=== PATIENT | male | born 1930 | race Caucasian/White ===

== ENCOUNTER 2017-09-08 22:58 | Inpatient (IN) | payer MEDICARE, BC ==
[~2017-09-08] VITALS: Ht 193 cm; Wt 92.4 kg
[~2017-09-08 22:58] MED LIST: COUMADIN2.5 MG PO; PRILOSEC20 MG PO; SLO-NIACIN; TRAVATAN Z2.5 ML EACH EYE; TYLENOL 325 MG325 MG PO; ULTRACET TABLET1 TAB PO; ZOCOR20 MG PO
[2017-09-08 23:46] LABS: BASOPHILS 0.4 % (0-2); EOSINOPHILS 3.9 % (0-7); HEMATOCRIT 42.1 % (42.0-54.0); HEMOGLOBIN 13.5 g/dL (13.5-17.5); IMMATURE GRANULOCYTES 0.1 % (0-5); LYMPHOCYTES 20.9 % (15-50); MCH 30.5 pg (26.0-34.0); MCHC 32.1 g/dL (31.0-37.0); MEAN PLATELET VOLUME 11.4 fL (7.4-10.4); MONOCYTES 12.7 % (2-11); PLATELET COUNT 164 10x3/uL (130-400); RBC 4.43 10x6/uL (4.20-6.10); RDW 14.7 % (11.5-14.5); WBC 7.1 10x3/uL (4.8-10.8)
[2017-09-09] VITALS (7 sets, daily range): BP systolic 103–152; BP diastolic 43–132; Ht 193 cm; Wt 92.4 kg
[2017-09-09 00:02] LABS: ALBUMIN 3.3 g/dL (3.4-5.0); ALKALINE PHOSPHATASE 91 U/L (46-116); ALT (SGPT) 14 U/L (10-68); BILIRUBIN - TOTAL 1.26 mg/dL (0.2-1.3); CALC OSMOLALITY 284 mosm/kg (275-300); CALCIUM 8.8 mg/dL (8.5-10.1); CARBON DIOXIDE 24.6 mmol/L (21.0-32.0); CHLORIDE - SERUM 106 mmol/L (98-107); GLUCOSE 110 mg/dL (74-106); POTASSIUM - SERUM 3.7 mmol/L (3.5-5.1); SODIUM 142 mmol/L (136-145); UREA NITROGEN 14 mg/dL (7-18); eGFR NON AFRICAN AMERICAN 75 mL/min (90-120)
[2017-09-09 00:15] LABS: CREATINE KINASE 104 UL (21-232); MAGNESIUM - SERUM 1.9 mg/dL (1.8-2.4); PRO BNP 3832 pg/mL (0-450); TROPONIN-I 0.027 ng/mL (0.000-0.060)
[2017-09-09 08:44] LABS: INR 2.23 (0.85-1.17); PROTIME 24.8 SECONDS (11.6-15.0)
[2017-09-10 00:04] VITALS: BP 107/51
[2017-09-10 04:24] VITALS: BP 115/42
[2017-09-10 05:24] LABS: BASOPHILS 0.4 % (0-2); EOSINOPHILS 4.6 % (0-7); HEMATOCRIT 38.7 % (42.0-54.0); HEMOGLOBIN 12.6 g/dL (13.5-17.5); IMMATURE GRANULOCYTES 0.2 % (0-5); LYMPHOCYTES 26.4 % (15-50); MCHC 32.6 g/dL (31.0-37.0); MCV 95.3 fL (80.0-100.0); MEAN PLATELET VOLUME 11.1 fL (7.4-10.4); MONOCYTES 15.6 % (2-11); NEUTROPHILS 52.8 % (40-80); PLATELET COUNT 165 10x3/uL (130-400); RBC 4.06 10x6/uL (4.20-6.10); RDW 14.2 % (11.5-14.5)
[2017-09-10 05:36] LABS: INR 2.2 (0.85-1.17); PROTIME 24.5 SECONDS (11.6-15.0)
[2017-09-10 05:52] LABS: ANION GAP 9.8 mmol/L (8-16); CALCIUM 8.6 mg/dL (8.5-10.1); MAGNESIUM - SERUM 1.9 mg/dL (1.8-2.4); POTASSIUM - SERUM 3.6 mmol/L (3.5-5.1)
[2017-09-10 05:57] LABS: CARBON DIOXIDE 31.8 mmol/L (21.0-32.0); CREATININE - SERUM 1.3 mg/dL (0.6-1.3)
[2017-09-10] MEDS ORDERED: LASIX40 MG PO (06:45)
[2017-09-10] MEDS ORDERED: K-TAB10 MEQ PO (06:46)
[2017-09-10] MEDS ORDERED: LEVAQUIN750 MG PO (06:47)
--- NOTE | 2017-09-10 06:51 | HP ---
PATIENT: SOCORRO FLOWER MEDICAL RECORD: [id number] ACCOUNT: [id number] LOCATION:[address] : 32 ADMISSION DATE: 09/09/17 HISTORY AND PHYSICAL EXAMINATION DATE OF ADMISSION: 09/09/2017 CHIEF COMPLAINT: Shortness of breath. HISTORY OF PRESENT ILLNESS: The patient is an 87-year-old gentleman, who states for the last couple of days he presented to the Emergency Room complaining of cough, congestion, and unable to breathe. PAST MEDICAL HISTORY: Significant that he has had a pacemaker placed. He has also had atrial fibrillation, has had a left carotid endarterectomy. The patient has had hypertension as well as hyperlipidemia. He has also had BPH. FAMILY HISTORY: Father had diabetes mellitus, at 64 years of age. Also myocardial infarction. Mother at 97 years of age. SOCIAL HISTORY: The patient was born and raised in [place]. He is educated through the 12th grade and retired from the [employer]. He is the father of 1. He is a . HABITS: He stopped smoking in 2001. Alcohol was 9. MEDICATIONS: Include, omeprazole 20 mg once a day. He is also on warfarin 2.5 daily, ____ 40 mg daily. ALLERGIES: HE IS ALLERGIC TO STATINS. REVIEW OF SYSTEMS: CONSTITUTIONAL: He denies any headaches, seizure or syncope. Denies change in visual or auditory acuity. PULMONARY: He denies any hemoptysis. He has had cough. He has had congestion. He has had shortness of breath. CARDIOVASCULAR: He denies any chest pain, palpitations, PND or orthopnea. GASTROINTESTINAL: No chronic nausea, vomiting, melena or hematochezia. GENITOURINARY: No urinary frequency or dysuria. PHYSICAL EXAMINATION: VITAL SIGNS: In the Emergency Room, the patient's pulse was 82, his respirations 22, his blood pressure is 182/117, his O2 sat was 89% on 2 liters. HEAD, EYES, EARS, NOSE, AND THROAT: Head is normocephalic. No lesions. Ears: TMs clear. Eyes: Pupils equal, round and reactive to light. His extraocular movements are intact. Nasal cavity, oral cavity, oropharynx clear. NECK: Supple. There is no adenopathy. HEART: Has a regular rate without murmurs, gallops or rubs. LUNGS: He had some rales in the left lower lung. ABDOMEN: Soft, bowel sounds positive. EXTREMITIES: The patient does have a trace pretibial edema. LABORATORY DATA: He had a white count 7.1, hemoglobin 13.5, hematocrit 42.1, and his platelets were 164. HISTORY AND PHYSICAL [id number] SOCORRO FLOWER His sodium is 142, potassium 3.7, chloride is 106, CO2 is 24.6, BUN 14, creatinine of 1.0, glucose 110. He had a proBNP of 3832. X-ray revealed cardiomegaly with possible left lower lobe infiltrate. ASSESSMENT: Probable congestive heart failure, history of peripheral vascular disease, pneumonia, history of atrial fibrillation, and hyperlipidemia. PLAN: The patient is admitted. We will add diuresis, placed on Levaquin 750 mg IV q. 24 hours. We will adjust the patient's blood pressure meds. We will also get an echocardiogram. TRANSINT:[id number] Voice Confirmation ID: [id number] DOCUMENT ID: [id number] LEONEL MARTINEZ MD at 0651 CC: [id number] DICTATION DATE: 09/09/17715 PROJECT INSPECTOR: 09/09/17 0912 ADM IN [address] [place] [address]
[2017-09-10 08:16] VITALS: BP 163/87
--- NOTE | 2017-11-05 07:19 | DS ---
PATIENT:SOCORRO FLOWER :34 MEDICAL RECORD: [id number] DISCHARGE SUMMARY ADMISSION DATE: 09/09/17 DISCHARGE DATE: 09/10/17 DATE OF ADMISSION: 09/09/2017 DATE OF DISCHARGE: 09/10/2017 CONDITION ON DISCHARGE: Improved. ADMITTING DIAGNOSES: Congestive heart failure, peripheral vascular disease, pneumonia, history of atrial fibrillation, hyperlipidemia. DISCHARGE DIAGNOSES: Cough, hypertension, congestive heart failure, pneumonia, BPH, history of pacemaker, atrial fibrillation. HOSPITAL COURSE: This patient is an 87-year-old gentleman with a longstanding history of having had hypertension. He presented to the Emergency Room with difficulty and cough and congestion, difficulty breathing. In the Emergency Room, the patient's pulse was 82, his respirations 22, his blood pressure elevated at 182/117, his O2 sat was 89% on 2 liters. His HEENT was unremarkable. His heart had a regular rate. His lungs, he had rales in the left lower lung. White count was 7.1, hemoglobin 13.5, hematocrit was 42.1, his platelets were 164. Sodium 142, potassium was 3.7, chloride 106, CO2 was 24.6, BUN 14, creatinine was 1, glucose 110. ProBNP was elevated at 3832. Chest x-ray revealed a probable left lower lobe pneumonia with cardiomegaly. The patient was admitted. Started on Levaquin 750 mg IV every 24 hours. An echocardiogram was ordered as well. The echocardiogram revealed ejection fraction approximately 50% to 55%. Normal size of the left atrium. Aortic valve thickened leaflets, but no regurgitation or stenosis was noted. No effusion. There was some left ventricular hypertrophy present. Moderate tricuspid regurgitation. Elevated pulmonary pressures were seen. The patient had a good gentle diuresis. On the date of discharge, the patient's white count was 5, hemoglobin 12.6, hematocrit 38.7, and platelets were 165. Sodium 141, potassium 3.6, chloride 103, CO2 of 31.8, BUN 17, creatinine was 1.3. The patient was stable. It was felt he can be discharged home. He was discharged on Lasix 40 mg 1 p.o. every day along with KCl 10 mEq 1 p.o. every day, 7 days of Levaquin 750 mg 1 p.o. every day. He was continued on his Coumadin 2.5 mg daily, omeprazole 20 mg daily, travoprost 1 drop in each eye daily, Ultracet 37.5/325 one p.o. every 4 hours p.r.n. pain, acetaminophen 325 mg every 4 hours p.r.n. pain. DISCHARGE INSTRUCTIONS: The patient was discharged on a 50-ounce daily fluid restriction. He would follow up with me in 1 week. His diet was [employer]. 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
== END 2017-09-10 09:30 | disposition home or self-care (01) | DRG 291 ==
LOC: D.ER 22:58 → D.M2 09-09 00:29
PROVIDERS: Emergency Medicine; ADMIT Family Medicine
DX: I11.0 Hypertensive heart disease with heart failure (principal); J18.9 Pneumonia, unspecified organism; I50.9 Heart failure, unspecified; E78.5 Hyperlipidemia, unspecified; N40.0 Benign prostatic hyperplasia without lower urinary tract symptoms; Z95.0 Presence of cardiac pacemaker; I48.91 Unspecified atrial fibrillation